=== PATIENT | male | born 1995 | race Caucasian/White ===

== ENCOUNTER 2017-01-04 15:25 | Emergency (ER) | payer SELFPAY ==
[~2017-01-04] VITALS: Ht 167.6 cm; Wt 59.0 kg
[2017-01-04] MEDS ORDERED: IBUPROFEN 600MG TABLET PO ONE (18:45)
[2017-01-04 18:47] VITALS: BP 105/60
== END 2017-01-04 19:16 | disposition home or self-care (01) ==
LOC: ER 19:01
DX: R59.1 Generalized enlarged lymph nodes (principal); F12.10 Cannabis abuse, uncomplicated; Z90.49 Acquired absence of other specified parts of digestive tract
CPT/HCPCS: 99283